=== PATIENT | female | born 1990 | race Two or more races ===

== ENCOUNTER 2025-08-15 11:35 | Inpatient (IN) | payer OTHER ==
[~2025-08-15] VITALS: Ht 167.6 cm; Wt 57.6 kg
[2025-08-15 12:25] VITALS: O2SAT 98
[2025-08-15] MEDS ORDERED: 0.9 % SODIUM CHLORIDE 500 ML IV ONE (14:00)
[2025-08-15 14:33] LABS: BASO % 0.3 % (0.1-1.2); EOS # 0.07 (0.04-0.54); EOS % 0.9 % (0.7-7.0); LYMPH # 2.39 (1.18-3.74); LYMPH % 31.8 % (19.3-53.1); MEAN PLATELET VOLUME 10.20 fl (9.4-12.4); MONO # 0.34 (0.24-0.82); MONO % 4.5 % (4.7-12.5); NEUT # 4.67 (1.56-6.13); NEUT % 62.1 % (34.0-71.1); RED CELL DISTRIBUTION WIDTH 13.3 % (11.6-14.4)
[2025-08-15 15:07] LABS: INR 0.96
[2025-08-15 15:40] LABS: BUN CREA RATIO 12.0 (7.0-25.0); CREATININE SERUM 0.57 mg/dL (0.55-1.02); GFR 120.01; GLUCOSE FASTING 101.0 mg/dL (65-100); OSMOLALITY SERUM 281.0 MOSM/KG (275-295)
[2025-08-15 15:44] LABS: HCG QUANTITATIVE 1240.0 mUI/mL (1-3)
[2025-08-15 16:00] LABS: URINE APPEARANCE Clear; URINE BILIRRUBIN Negative (NEGATIVE); URINE BLOOD Large; URINE COLOR Orange; URINE GLUCOSE Negative (NEGATIVE); URINE KETONE Negative (NEGATIVE); URINE LEUKOCYTE Small; URINE NITRATE Negative; URINE PROTEIN Trace (NEGATIVE); URINE UROBILINOGEN 1.0 E.U./dl
[2025-08-15 16:01] LABS: URINE BACTERIA 32.3 uL (0.0-1933); URINE EPITHELIAL CELLS 5.5 uL (0.0-38.8); URINE RBC 793.8 uL (0.0-20.8); URINE WBC 41.9 uL (0.0-23.2)
[2025-08-15 16:02] LABS: URINE CAST 0.00 uL (0.0-1.40)
[2025-08-15] MEDS ORDERED: ACETAMINOPHEN 325 MG TABLET PO PRN (20:45)
[2025-08-15] MEDS ORDERED: 0.9 % SODIUM CHLORIDE 1,000 ML IV SCH (20:45)
[2025-08-16 00:32] VITALS: BP 107/69
[2025-08-16 08:00] VITALS: BP 100/66
[2025-08-16 19:06] VITALS: BP 100/64
[2025-08-17] VITALS: BP 96/56
[2025-08-17 06:45] LABS: BASO % 0.4 % (0.1-1.2); EOS # 0.15 (0.04-0.54); EOS % 2.7 % (0.7-7.0); LYMPH # 2.54 (1.18-3.74); LYMPH % 45.8 % (19.3-53.1); MEAN PLATELET VOLUME 10.10 fl (9.4-12.4); MONO # 0.36 (0.24-0.82); MONO % 6.5 % (4.7-12.5); NEUT # 2.47 (1.56-6.13); NEUT % 44.4 % (34.0-71.1); RED CELL DISTRIBUTION WIDTH 14.8 % (11.6-14.4)
[2025-08-17 06:56] LABS: INR 0.96
[2025-08-17 09:05] VITALS: BP 98/62
== END 2025-08-17 12:28 | disposition home or self-care (01) | DRG 761 ==
LOC: ER 11:35 → OB/GYN 20:52 → SEC-K 20:52 → SURH 22:01 → OB/GYN 22:05
PROVIDERS: Emergency Medicine; ADMIT Obstetrics & Gynecology; ATTEND Obstetrics & Gynecology
PROC: 30233N1 Transfusion of Nonautologous Red Blood Cells into Peripheral Vein, Percutaneous Approach (ICD-10-PCS; principal; 2025-08-16)
DX: N93.9 Abnormal uterine and vaginal bleeding, unspecified (principal); D64.9 Anemia, unspecified

== ENCOUNTER 2025-11-13 09:55 | Emergency (ER) | payer OTHER ==
[~2025-11-13] VITALS: Ht 167.6 cm; Wt 59.0 kg
[2025-11-13 12:00] VITALS: O2SAT 100
[2025-11-13 14:16] LABS: URINE APPEARANCE Turbid; URINE BILIRRUBIN Negative (NEGATIVE); URINE BLOOD Large; URINE COLOR Yellow; URINE GLUCOSE Negative (NEGATIVE); URINE KETONE Trace (NEGATIVE); URINE LEUKOCYTE Large; URINE NITRATE Positive; URINE PROTEIN 30 (NEGATIVE); URINE UROBILINOGEN 0.2 E.U./dl
[2025-11-13 14:20] LABS: URINE EPITHELIAL CELLS 5.0 uL (0.0-38.8); URINE RBC 157.5 uL (0.0-20.8); URINE WBC 4081.8 uL (0.0-23.2)
[2025-11-13 14:38] LABS: URINE BACTERIA > 9821.5 uL (0.0-1933); URINE CAST 0.00 uL (0.0-1.40)
[2025-11-13 15:19] VITALS: BP 120/80
== END 2025-11-13 15:20 | disposition home or self-care (01) ==
LOC: ER 09:56
PROVIDERS: General Practice
DX: N39.0 Urinary tract infection, site not specified (principal)